=== PATIENT | male | born 1970 | race African-American/Black ===

== ENCOUNTER 2023-02-14 23:26 | Emergency (ER) | payer SELFPAY ==
--- NOTE | ~2023-02-14 | XR_ITS ---
Left Knee Technique: AP, lateral, and oblique views were obtained. Clinical History: Pain swelling Findings: No fracture or dislocation is seen. Osseous alignment is anatomic. Joint spaces are preserv ed without degenerative or erosive change. Soft tissues are unremarkable. No joint effusion is seen. Impression: Unremarkable left knee radiographs. Reviewed, dictated and finalized at location . Impression: Unremarkable left knee radiographs.
[2023-02-14 23:32] VITALS: BP 135/92; PULSE 96; RESP 15; TEMP 36.4; O2SAT 95
--- NOTE | 2023-02-15 01:35 | ED.EXTPRO ---
HPI - Extremity Problem General Chief complaint: Extremity Problem,Nontraumatic Stated complaint: knee pain Time Seen by Provider: 02/15/23 01:28 Source: patient Mode of arrival: ambulatory Limitations: no limitations History of Present Illness HPI Narrative: This is a 52-year-old male who presents to the ED with chief complaint of left knee pain beginning several months ago. States today he just wanted to get it checked out because his family members told him to. He reports there was an area of swelling to the lateral knee which is since improved. He still has some pain in this area and feels like the pain radiates up his thigh at times. Patient works at the [employer] and does a lot of walking and manual labor. Reports a lot of repetitive stress to the legs. Denies any numbness, weakness, fevers, chills. Review of Systems Review of Systems: CONSTITUTIONAL: Denies fever, chills, or sweats. SKIN: Denies rash or itching. MUSCULOSKELETAL: See HPI NEUROLOGIC: Denies headache, numbness, dizziness, or weakness. PSYCHIATRIC: Denies anxiety or depression. Exam Narrative: GENERAL: Well-appearing, well-nourished, and in no acute distress. MSK: Right knee: Benign Left knee: No deformity or effusion. Mild area of swelling to the lateral fibula. Minimal tenderness throughout the knee. Somewhat painful with active and passive range of motion however they are both full. Neurovascular intact distally. Normal range of motion. No edema. SKIN: Warm, dry, no rash. NEURO: Alert and oriented x3. No focal deficits. PSYCH: Normal mood and affect. Course Vital Signs Vital signs: Vital Signs Temperature 97.5 F L 02/14/23 23:32 Pulse Rate 96 02/14/23 23:32 Respiratory Rate 15 02/14/23 23:32 Blood Pressure 135/92 H 02/14/23 23:32 Pulse Oximetry 95 02/14/23 23:32 Oxygen Delivery Room Air 02/14/23 23:32 Temperature 97.5 F L 02/14/23 23:32 Pulse Rate 96 02/14/23 23:32 Respiratory Rate 15 02/14/23 23:32 Blood Pressure 135/92 H 02/14/23 23:32 Pulse Oximetry 95 02/14/23 23:32 Oxygen Delivery Room Air 02/14/23 23:32 MDM - Extremity (Nontraumatic) MDM Narrative Medical decision making narrative: This is a 52-year-old male who presents to the ED with chief complaint of left knee pain ongoing for many months. No change in his pain today but his family members told him he should get it checked out so he came here. Vitals are stable. Exam is benign. X-rays show minimal arthritis. Feel that his symptoms are more consistent with an IT band syndrome as he has pain that radiates up the side of the thigh while walking/exercising. He is stable for discharge. Supportive measures discussed. Referral given. Patient is understanding and agreeable plan for discharge and follow-up with specialist. Discharge Plan Discharge Clinical Impression: Chronic knee pain Patient Disposition: Home, Self-Care Condition: Stable Instructions: Antibiotic Form Additional Instructions: Your x-rays do not show any fractures or dislocations. Slight arthritis noted in the knee but I feel that your symptoms were more likely muscular related. Please follow-up with the doctor attached in your paperwork. You need to take Tylenol and ibuprofen every 4-6 hours as needed for pain. Follow-up/Referrals: Betito Liang MD [Physician] - PHYSICIAN NOT ON STAFF,NONSTAFF [Primary Care Provider] - Stand Alone Forms: Work/School Release IP Time of Disposition: 02:40
== END 2023-02-15 03:05 | disposition home or self-care (01) ==
PROVIDERS: Emergency Provider Physician Assistant
DX: M25.562 Pain in left knee (principal); G89.29 Other chronic pain
CPT/HCPCS: 73562; 99283